=== PATIENT | female | born 1960 | race Caucasian/White ===

== ENCOUNTER 2017-08-14 09:17 | Emergency (ER) | payer OTHER ==
--- NOTE | 2017-08-14 09:39 | ED.PDOC ---
History of Present Illness - General Chief Complaint: Trauma Stated Complaint: fall/swelling left forearm Time Seen by Provider: 08/14/17 09:20 Exam Limitations: no limitations - History of Present Illness Initial Comments: Lety Alves 57 y/o female stated tripped on her dog 2 days ago at home fell on the [place] landing on left upper extremity.denies head,neck.chest ,hip pains.Dull ache left arm. Occurred: other - see hpi Pain - Upper Extremity: moderate: Elbow, left, Forearm, left Method of Injury: fell Improving Factors: rest Worsening Factors: movement Associated Symptoms: PAIN on MOVEMENT Allergies/Adverse Reactions: Allergies NO KNOWN ALLERGY Allergy (Verified 08/14/17 09:52) Home Medications: Ambulatory Orders Tramadol HCl 50 mg PO TID #30 tab 08/14/17 Review of Systems - Review of Systems Constitutional: States: no symptoms reported EENTM: States: no symptoms reported Respiratory: States: no symptoms reported Cardiology: States: no symptoms reported Musculoskeletal: States: see HPI All other Systems: Reviewed and Negative, No Change from Baseline Past Medical History (General) - Patient Medical History Hx Hypertension: Yes Hx Other PMH: Yes - biliary cirrhosis Surgical History: no surgical history - Vaccination History Hx Tetanus, Diphtheria Vaccination: No Hx Influenza Vaccination: No Hx Pneumococcal Vaccination: No - Social History Hx Chewing Tobacco Use: Yes Hx Alcohol Use: No Hx Substance Use: No Hx Depression: No Feels Threatened In Home Enviroment: No Hx Physical Abuse: No Hx Emotional Abuse: No - Activities of Daily Living [facility] (if applicable):: [facility] - Female History Patient is a Female of Child Bearing Age (10 -59 yrs old): No Family Medical History - Family History Father Hx Family Hypertension: Yes - mom Hx Family;Other: dad-biliary cirrhosis Mother Family History: Unknown Physical Exam - Physical Exam General Appearance: Alert, Comfortable, No apparent distress Eyes, Ears, Nose, Throat Exam: normal ENT inspection Neck: non-tender, full range of motion, supple Cardiovascular/Respiratory: regular rate, rhythm, no M/R/G, normal peripheral pulses, normal breath sounds Abdominal Exam: non-tender, no organomegaly Back Exam: no CVA tenderness, no vertebral tenderness Shoulder Exam: normal inspection, non-tender, no evidence of injury Elbow/Forearm Exam: bone tenderness - left elbow ,forearm, limited ROM - painful left elbow, pain - left forearm, soft tissue tenderness - left elbow Wrist Exam: no evidence of injury Hand Exam: no evidence of injury Neuro/Tendon: normal sensation, normal motor functions, normal tendon functions , responds to pain Mental Status: alert, oriented x 3 Progress - Progress Progress: 08/14/17 09:53 Vital Signs - 8 hr 08/14/17 09:41 Temperature 99.3 F Pulse Rate [ 110 H left brachial] Respiratory 16 Rate Blood Pressure 155/85 [left brachial] O2 Sat by Pulse 95 Oximetry - EKG/XRAY/CT XRAY: elbow - fracture left elbow Departure - Departure Clinical Impression: Left elbow fracture Qualifiers: Encounter type: initial encounter Fracture type: closed Qualified Code(s): S42.402A - Unspecified fracture of lower end of left humerus, initial encounter for closed fracture Fall at home Qualifiers: Encounter type: initial encounter Qualified Code(s): W19.XXXA - Unspecified fall, initial encounter; Y92.099 - Unspecified place in other non-institutional residence as the place of occurrence of the external cause Time of Disposition: 10:31 Disposition: Discharge to Home or Self Care Condition: Fair Departure Forms: ED Discharge - Pt. Copy, Patient Portal Self Enrollment Instructions: Elbow Fracture, DI for Elbow Fracture Prescriptions: Tramadol HCl 50 mg PO TID #30 tab Home Medications: Ambulatory Orders Tramadol HCl 50 mg PO TID #30 tab 08/14/17 Additional Instructions: Need to sign up with primary Md for referral to othopedist Dr. Vanegas;[facility]-/
[2017-08-14 09:50] VITALS: TEMP 99.3
[2017-08-14] MEDS ORDERED: KETOROLAC TROMETHAMINE INJ 60 MG/2 ML VIAL IM ONE (09:55)
--- NOTE | 2017-08-14 10:16 | RAD ---
EXAM DESCRIPTION: Left elbow, 3 views CLINICAL HISTORY: Trauma. Elbow pain FINDINGS/ IMPRESSION: Lateral radiograph best demonstrates a fracture across the olecranon process with intra-articular extension mid ulna. Rotation of the fragment with proximal migration about 1.5 cm No fracture of the humerus or radius. Soft tissue edema and swelling Electronically signed by: Alex Sterling MD 08/14/2017 10:14 AM CDT
--- NOTE | 2017-08-14 10:17 | RAD ---
EXAM DESCRIPTION: Left forearm, 2 views CLINICAL HISTORY: Trauma. Pain FINDINGS/ IMPRESSION: Fracture across the olecranon process with intra-articular extension mid ulna. Mild comminution with a couple of small fragments posteriorly. Maximum separation up to 1.5 cm with proximal migration of the dominant fragment. Overlying soft tissue swelling and edema No fracture of the radius or distal humerus Electronically signed by: Alex Sterling MD 08/14/2017 10:16 AM CDT
[2017-08-14 11:24] VITALS: BP 137/71; O2SAT 97
== END 2017-08-14 11:20 | disposition home or self-care (01) ==
LOC: ER 09:17
DX: S52.032A Displaced fracture of olecranon process with intraarticular extension of left ulna, initial encounter for closed fracture (principal); I10 Essential (primary) hypertension; W01.0XXA Fall on same level from slipping, tripping and stumbling without subsequent striking against object, initial encounter; Y92.007 Garden or yard of unspecified non-institutional (private) residence as the place of occurrence of the external cause
CPT/HCPCS: 73080; 73090; J1885

== ENCOUNTER → 2017-09-03 | Outpatient (CLI) | payer OTHER ==
--- NOTE | 2017-09-03 09:02 | RAD ---
EXAM DESCRIPTION: Elbow,Left 3 Views CLINICAL HISTORY: 57 years Female, PAIN IN LEFT ELBOW COMPARISON: Radiographs of the left elbow dated 08/14/2017. FINDINGS: The visualized bones are well-mineralized. Again identified is a fracture of the olecranon process with no interval healing. There is associated soft tissue swelling and joint effusion. IMPRESSION: Fracture of the left olecranon process with no interval healing. Electronically signed by: Melvina Roberts MD 09/03/2017 9:00 AM CDT
== END ==
LOC: RAD 07:47
PROVIDERS: ATTEND Orthopaedic Surgery
DX: S52.022A Displaced fracture of olecranon process without intraarticular extension of left ulna, initial encounter for closed fracture (principal)

== ENCOUNTER 2017-09-04 05:43 | Day surgery (SDC) | payer OTHER ==
--- NOTE | 2017-09-03 11:45 | RAD ---
EXAM DESCRIPTION: Chest,2 Views CLINICAL HISTORY: PREOP COMPARISON: None TECHNIQUE: PA/lateral FINDINGS: There is no acute appearing cardiac or pulmonary abnormality. Heart size is normal with normal pulmonary vascularity. No pleural effusion or pneumothorax. Lungs are clear with no consolidating infiltrate. Old healed right rib fractures. Lateral view shows intact sternum and T-spine. IMPRESSION: No acute process is identified in the chest. Electronically signed by: Heriberto Mcdonough MD 09/03/2017 11:44 AM CDT
[2017-09-04] MEDS ORDERED: LIDOCAINE 1% 50 ML VIAL INJ ONE (07:00)
[2017-09-04] MEDS ORDERED: PROPOFOL 200 MG/20 ML VIAL IV ONE (07:00)
[2017-09-04] MEDS ORDERED: ceFAZolin SODIUM 1 GM VIAL ONE ×2 (07:07→08:38)
[2017-09-04] MEDS ORDERED: VANCOMYCIN HCL INJ 1,000 MG VIAL IVPB ONE ×2 (07:07→09:40)
[2017-09-04] MEDS ORDERED: BUPIVACAINE 0.25% W/EPI 50 ML VIAL INJ ONE (07:08)
[2017-09-04] MEDS ORDERED: LACTATED RINGERS 1,000 ML ONE (08:38)
[2017-09-04] MEDS ORDERED: SODIUM CHL 0.9% 100ML MINI-BAG 100 ML IVPB ONE (08:38)
[2017-09-04] MEDS ORDERED: MIDAZOLAM INJ 5 MG/5 ML VIAL ONE (09:12)
[2017-09-04] MEDS ORDERED: fentaNYL CITRATE INJ 50 MCG/ML AMP ONE ×2 (09:12→13:40)
[2017-09-04] MEDS ORDERED: LIDOCAINE 2 % GEL 5 ML TUBE TOP ONE (09:12)
[2017-09-04] MEDS ORDERED: SODIUM CHLORIDE 0.9% 250ML 250 ML ONE (09:40)
[2017-09-04] MEDS ORDERED: MORPHINE SULFATE INJ 10 MG/ML VIAL ONE (13:20)
[2017-09-04] MEDS ORDERED: HYDROcodone 5MG/APAP 325MG 1 EA TAB ONE (14:07)
[2017-09-04 15:42] VITALS: TEMP 97; O2SAT 96
[2017-09-04 15:43] VITALS: BP 166/80
--- NOTE | 2017-09-07 09:01 | OP ---
PREOPERATIVE DIAGNOSIS: 1. Fracture of the left olecranon. POSTOPERATIVE DIAGNOSIS: 1. Fracture of the left olecranon. PROCEDURE: 1. Open reduction internal fixation of olecranon. SURGEON: Tapan Vanegas MD. CHILD DAYCARE WORKER: Dereje Jacobson CST, SA-C. ANESTHESIA: General anesthesia. COMPLICATIONS: None. FINDINGS: Fracture of the olecranon. INDICATION: Ms. Alves has a history of a fall with subsequent fracture of the olecranon. She was placed in a sling and unfortunately has not been moving the elbow for 3 months. As such, she has developed stiffness in the elbow. After discussing with her her injury as well as the risks, benefits and alternatives to operative therapy, she has given informed consent. PROCEDURE: The patient was brought to the Operating Room and placed in supine position. General anesthesia was induced. The patient's arm was sterilely prepped and draped. Following prepping and draping, an incision was made midline over the olecranon. Dissection was carried down to the olecranon and the hematoma was evacuated. This was an intraarticular appearing fracture and there was some contusion of the cartilage on the humerus. Even with the patient full asleep, I was unable to fully extend the elbow by about 10 degrees. After the fracture had been fully debrided and bleeding bony surfaces were obtained, reduction was achieved and fixed with K-wires. The reduction was checked under fluoroscopic imaging. Following that, a plate was applied across the fracture and sequentially combination of both locking and nonlocking screws were used. The arm was taken through a range of motion under fluoroscopic guidance and there did not appear to be any gross motion or gapping at the fracture site. The wound was very thoroughly irrigated and closed with a combination of running and interrupted subcuticular stitches as well as Nylon. The patient was placed in a posterior splint and awoken from anesthesia. She was taken to Recovery. PLAN: Postoperatively, she will followup with us in 3 days, but we are going to begin very aggressive range of motion therapy program for her. Additionally , she is a somewhat heavy smoker and I therefore counseled both she and her significant other at length regarding the risks and deleterious effects of smoking on bony healing. Both expressed understanding of that and have expressed a commitment to cease smoking. #[id number] [facility]
== END 2017-09-04 15:30 | disposition home or self-care (01) ==
LOC: AMB 05:43
PROVIDERS: ATTEND Orthopaedic Surgery
DX: S52.022A Displaced fracture of olecranon process without intraarticular extension of left ulna, initial encounter for closed fracture (principal); I10 Essential (primary) hypertension; F17.200 Nicotine dependence, unspecified, uncomplicated; K83.1 Obstruction of bile duct; Z79.899 Other long term (current) drug therapy
CPT/HCPCS: 01740; 24685; 36415; 71046; 76000; 80048; 81001; 85025; 87070; 87086; 87088; 87186; 93005; J0690; J2250; J2270; J3010; J3370; J3490; J7050; J7120

== ENCOUNTER → 2017-09-14 | Outpatient (CLI) | payer OTHER ==
--- NOTE | 2017-09-14 11:32 | RAD ---
EXAM DESCRIPTION: Elbow,Left 3 Views CLINICAL HISTORY: 57 years Female, FRACTURE OF OLECRANON COMPARISON: Radiographs of left elbow dated 09/03/2017. FINDINGS: The visualized bones are well-mineralized. Plate and screw fixation of the olecranon process is noted. The soft tissues appear grossly unremarkable. IMPRESSION: Interval plate and screw fixation of the olecranon process. Electronically signed by: Melvina Roberts MD 09/14/2017 11:31 AM CDT
== END ==
LOC: RAD 10:34
PROVIDERS: ATTEND Orthopaedic Surgery
DX: S52.021D Displaced fracture of olecranon process without intraarticular extension of right ulna, subsequent encounter for closed fracture with routine healing (principal)

== ENCOUNTER → 2017-10-05 | Outpatient (CLI) | payer OTHER ==
--- NOTE | 2017-10-05 09:14 | RAD ---
EXAM DESCRIPTION: Elbow,Left 3 Views CLINICAL HISTORY: 57 years Female, FRACTURE OF OLECRANON COMPARISON: Radiographs of left elbow dated 09/14/2017. FINDINGS: Plate and screw fixation of the olecranon process is again noted. The fracture line is faintly visualized with some interval healing. There is persistent surrounding soft tissue swelling and joint effusion. IMPRESSION: Intact plate and screw fixation of the olecranon process with faint visualization the fracture lines, suggesting interval healing. Electronically signed by: Melvina Roberts MD 10/05/2017 9:13 AM CDT
== END ==
LOC: RAD 08:53
PROVIDERS: ATTEND Orthopaedic Surgery
DX: S52.021D Displaced fracture of olecranon process without intraarticular extension of right ulna, subsequent encounter for closed fracture with routine healing (principal)

== ENCOUNTER → 2017-11-26 | Outpatient (CLI) | payer OTHER ==
--- NOTE | 2017-11-26 10:15 | RAD ---
EXAM DESCRIPTION: Elbow,Left 3 Views CLINICAL HISTORY: OLECRANON FX COMPARISON: The 2017 TECHNIQUE: AP, Lateral, and Oblique FINDINGS: Previous fixation of the proximal ulna with multiple screws and a curved posterior plate wrapping the olecranon process. Alignment is essentially anatomic. An extremely faint fracture line is evident on the lateral view only. No abnormality of the distal humerus radius noted. IMPRESSION: 1. Internally fixed healing fracture of the proximal ulna olecranon process with a faint fracture line remaining. Electronically signed by: Alex Villanueva MD 11/26/2017 10:14 AM CDT
== END ==
LOC: RAD 09:09
PROVIDERS: ATTEND Orthopaedic Surgery
DX: S52.021D Displaced fracture of olecranon process without intraarticular extension of right ulna, subsequent encounter for closed fracture with routine healing (principal)